=== PATIENT | male | born 1980 | race Caucasian/White ===

== ENCOUNTER 2016-09-27 07:15 | Inpatient (IN) | payer MEDICARE ==
[~2016-09-27] VITALS: Ht 165.1 cm; Wt 64.1 kg
[~2016-09-27 07:15] MED LIST: DAPS25TA2 PO; IBP600T1 PO; LEVO500T78 PO; [UNRECOGNIZED DRUG - CODE] PO
[2016-09-27 10:20] VITALS: BP 117/63
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
[2016-09-27] MEDS ORDERED: oxyCODONE/APAP 10/325MG (PERCOCET 10) TABLET PO PRN (11:00)
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
--- NOTE | 2016-09-27 12:11 | Physical Therapy Evaluation ---
PT Evaluation-General Medical Diagnosis Admission Date Sep 27, 2016 at 10:20 Medical Diagnosis: Left foot pain, S/P left ankle fusion, history abscess Onset Date: Sep 26, 2016 Therapy Diagnosis Therapy Diagnosis: general debility Height/Weight Height (Feet): 5 Height (Inches): 8 Weight (Pounds): 130 Precautions Precautions/Isolations: Fall Prevention, Standard Precautions Weight Bear Status Weight Bearing Restriction: Non Weight Bearing Location Restriction: L LE Referral Physician: Rahcid Reason for Referral: Evaluation/Treatment Medical History Pertinent Medical History: TBI Additional Medical History TBI 24 yrs. ago spastic tone bilateral extremities Current History s/p left ankle fusion Reviewed History: Yes Social History Home: Single Level Current Living Status: Other Family Entry Into Home: Ramp PT Steps Inside Home: 0 Prior/Core FIM Prior Level of Function Functional [place] Measure 0=Not Assessed/NA 4=Minimal Assistance 1=Total Assistance 5=Supervision or Setup 2=Maximal Assistance 6=Modified [place] 3=Moderate Assistance 7=Complete [place] Bed Mobility: 7 Transfers (B,C,W/C) (FIM): 7 Gait: 7 has power scooter and manual w/c PT Evaluation-Current Subjective Patient agrees to PT. Pain Numeric Pain Scale: 5-Moderate Pain Location: Left Location Body Site: Ankle Pain Description: Acute Objective Patient Orientation: Person, Time, Situation Problem Solving: Fair ROM/Strength ROM Lower Extremities right LE WFL (with noted spasticity) left LE NT Strenght Lower Extremities right knee flexion extension 5/5; hip flexion 5/5; ankle 5/5 (tone) left LE NT Integumentary/Posture Integumentary refer to nursing notes Bowel Incontinence: No Bladder Incontinence: No Posture WNL Neuromuscular (Tone, Coordination, Reflexes) bilateral extremities spastic tone/decreased coordination Sensory Vision: Functional Hearing: Functional Hand Dominance: Right Sensation Right Lower Extremit: Intact Sensation Left Lower Extremity: Intact Transfers Functional [place] Measure 0=Not Assessed/NA 4=Minimal Assistance 1=Total Assistance 5=Supervision or Setup 2=Maximal Assistance 6=Modified [place] 3=Moderate Assistance 7=Complete IndependenceIRFPAI Quality Coding Scale 6 Independent with activity with or without an assistive device 5 Patient requires set up or clean up by helper. Patient completes activity by themselves 4 Supervision or touching assist (CGA). [place] provide cues , steadying assist 3 The helper provides less than half the effort to complete the activity 2 The helper provides more than half the effort to complete the activity 1 Dependent. The helper does all the effort to complete an activity 7 Patient refused to complete or attempt activity 9 The patient did not perform the activity before the current illness or injury 88 Not attempted due to Medical conditions or safety concerns Transfers (B, C, W/C) (FIM): 3 Scootin Rollin Roll Left to Right (QC): 5 Supine to/from Sit: 6 Sit to/from Stand: 3 bed t/f WC(FIM only if WC use): 3 Sit to Lying (QC): 5 Lying to Sitting/Side of Bed(Q: 5 Sit to Stand (QC): 2 Chair/Ftt-vg-Aytmw Xfer(QC): 2 Car Transfer (QC): 88 Gait Does the Patient Walk?: No and Walking Goal NOT indicated Wheelchair Training Does the Pt Use a Wheelchair?: Yes Wheelchair (FIM): 1 Wheelchair Distance (FIM): 1=up to 49 ft Distance: 10' Wheelchair Level of Assist: 2 Type of Wheelchair: Manual Stairs 9 Balance Sitting Static: Normal Sitting Dynamic: Normal Standing Static: Poor Standing Dynamic: Poor Picking up an Object (QC): 88 Assessment/Needs 36 y.o. male, s/p left ankle fusion, will benefit from skilled PT to address functional mobility with transfer training to ensure safe return to home with family. Patient has a power chair he will utilize at home upon dismissal. Rehab Potential: Good PT Short Term Goals Short Term Goals Time Frame: October 10, 2016 Transfers (B,C,W/C) (FIM): 5 Wheelchair (FIM): 4 Wheelchair distance (FIM): 3=150 ft Wheelchair Distance: 200' Wheelchair Level of Assist: 4 PT Electrical Linesworker Goals Senior Living Goals PT Electrical Linesworker Goals Time Frame: October 24, 2016 Transfers (B,C,W/C) (FIM): 6 Sit to Lying (QC): 6 Lying-Sitting on Side/Bed(QC): 6 Sit to Stand (QC): 6 Rollin Roll Left to Right (QC): 6 Chair/Khd-nt-Mdmva Xfer(QC): 6 Car Transfer (QC): 6 Does the Patient Walk: No and Walking Goal NOT indicated Does the Pt use WC or Scooter?: Yes Wheelchair (FIM): 6 Wheelchair distance (FIM): 3=150 ft Distance: 250' Wheelchair Level of Assist: 6 Wheel 50 feet with 2 turns (QC: 5 Picking up an Object (QC): 3 PT Plan Problem List Problem List: Activity Tolerance, Safety, Transfer Treatment/Plan Treatment Plan: Continue Plan of Care Treatment Plan: Education, Functional Activity Stephanie, Functional Strength, Group Therapy, Safety, Therapeutic Exercise, Transfers Treatment Duration: October 24, 2016 # of days/week 6 Minutes/Day (M-F): 60-90 Minutes/Day (Sat/[place]): PRN Pt/Family Agrees w/Plan: Yes Safety Risks/Education Patient Education: Safety Issues Teaching Recipient: Patient, Family Teaching Methods: Discussion Response to Teaching: Verbalize Understanding Discharge Recommendations Therapy D/C Recommendations: Home w/ Family Support Time/GCodes Time In: 1021 Time Out: 1051 Total Billed Treatment Time: 30 Total Billed Treatment 1 visit EVModC 30 min DOMINGA FONTENOT PT Sep 27, 2016 12:11
[2016-09-27] MEDS ORDERED: SENNA W/DOCUSATE (SENOKOT S) TABLET PO NR (12:15)
[2016-09-27] MEDS ORDERED: ONDANSETRON 4 MG (ZOFRAN) ORAL DISSOLVE TAB PO PRN (12:30)
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
[2016-09-27] MEDS: IBUPROFEN 600 MG (MOTRIN) TAB PO PRN ×2 (12:39→18:42)
[2016-09-27] MEDS: NICOTINE 14 MG (NICODERM) PATCH TD SCH (12:40)
[2016-09-27] MEDS: TRIM/SULFAMETH 160/800 (SEPTRA DS) TAB PO SCH (18:05)
[2016-09-27] MEDS: ENOXAPARIN 40 MG/0.4 ML (LOVENOX) SYR SC SCH (21:04)
[2016-09-27] MEDS: SENNA W/DOCUSATE (SENOKOT S) TABLET PO SCH (21:05)
[2016-09-27] MEDS: FAMOTIDINE 20 MG (PEPCID) TABLET PO SCH (21:06)
[2016-09-28 05:37] LABS: BASOPHILS % (AUTO) 1 % (0-10); EOSINOPHILS # (AUTO) 0.1 10^3/uL (0.0-0.3); EOSINOPHILS % (AUTO) 1 % (0-10); LYMPHOCYTES # (AUTO) 1.5 X 10^3 (1.0-4.0); LYMPHOCYTES % (AUTO) 17 % (12-44); MEAN CORPUSCULAR HEMOGLOBIN 32 PG (25-34); MEAN CORPUSCULAR HGB CONC 34 G/DL (32-36); MEAN CORPUSCULAR VOLUME 95 FL (80-99); MEAN PLATELET VOLUME 9.9 FL (7.4-10.4); MONOCYTES # (AUTO) 1.1 X 10^3 (0.0-1.0); MONOCYTES % (AUTO) 13 % (0-12); NEUTROPHILS % (AUTO) 68 % (42-75); PLATELET COUNT 194 10^3/uL (130-400); RED BLOOD COUNT 3.27 10^6/uL (4.35-5.85); RED CELL DISTRIBUTION WIDTH 13.1 % (10.0-14.5); WHITE BLOOD COUNT 8.7 10^3/uL (4.3-11.0)
[2016-09-28] MEDS: TRIM/SULFAMETH 160/800 (SEPTRA DS) TAB PO SCH ×2 (06:18→16:10)
[2016-09-28 06:25] LABS: ALANINE AMINOTRANSFERASE 11 U/L (0-55); ANION GAP 8 MMOL/L (5-14); ASPARTATE AMINO TRANSFERASE 14 U/L (5-34); BILIRUBIN,TOTAL 0.5 MG/DL (0.1-1.0); BLOOD UREA NITROGEN 12 MG/DL (7-18); BUN/CREATININE RATIO 14; CALCIUM 8.2 MG/DL (8.5-10.1); CARBON DIOXIDE 25 MMOL/L (21-32); CHLORIDE 104 MMOL/L (98-107); CREATININE SERUM 0.88 MG/DL (0.60-1.30); GFR ESTIMATED > 60; GLUCOSE 114 MG/DL (70-105); SODIUM 137 MMOL/L (135-145); TOTAL PROTEIN 5.5 G/DL (6.4-8.2)
[2016-09-28 07:16] VITALS: BP 108/60
[2016-09-28] MEDS: FAMOTIDINE 20 MG (PEPCID) TABLET PO SCH ×2 (09:44→21:16)
[2016-09-28] MEDS: SENNA W/DOCUSATE (SENOKOT S) TABLET PO SCH ×2 (09:45→21:16)
[2016-09-28] MEDS: NICOTINE 14 MG (NICODERM) PATCH TD SCH (09:45)
[2016-09-28] MEDS: NICOTINE PATCH REMOVAL TP SCH (09:45)
[2016-09-28] MEDS: IBUPROFEN 600 MG (MOTRIN) TAB PO PRN (17:12)
[2016-09-28 17:50] VITALS: BP 105/64
[2016-09-28] MEDS: ENOXAPARIN 40 MG/0.4 ML (LOVENOX) SYR SC SCH (21:16)
[2016-09-29 06:00] VITALS: BP 107/61
[2016-09-29] MEDS: TRIM/SULFAMETH 160/800 (SEPTRA DS) TAB PO SCH ×2 (06:41→17:37)
[2016-09-29] MEDS: SENNA W/DOCUSATE (SENOKOT S) TABLET PO SCH ×2 (08:40→21:11)
[2016-09-29] MEDS: FAMOTIDINE 20 MG (PEPCID) TABLET PO SCH ×2 (08:41→21:08)
[2016-09-29] MEDS: NICOTINE PATCH REMOVAL TP SCH (08:41)
[2016-09-29] MEDS: NICOTINE 14 MG (NICODERM) PATCH TD SCH (08:41)
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
--- NOTE | 2016-09-29 10:23 | Physical Therapy Daily Note ---
PT Daily Note-Current Subjective Patient in bed pre tx, agrees to PT, has pain of 4/10 in left leg. Patient needs to get dressed and a wheel chair cushion needs to be obtained. Appearance Patient BTB post tx with nurse call, phone, tray, all needs met. Polar care on. Mental Status Patient Orientation: Person, Place, Situation Transfers Functional [place] Measure 0=Not Assessed/NA 4=Minimal Assistance 1=Total Assistance 5=Supervision or Setup 2=Maximal Assistance 6=Modified [place] 3=Moderate Assistance 7=Complete IndependenceIRFPAI Quality Coding Scale 6 Independent with activity with or without an assistive device 5 Patient requires set up or clean up by helper. Patient completes activity by themselves 4 Supervision or touching assist (CGA). [place] provide cues , steadying assist 3 The helper provides less than half the effort to complete the activity 2 The helper provides more than half the effort to complete the activity 1 Dependent. The helper does all the effort to complete an activity 7 Patient refused to complete or attempt activity 9 The patient did not perform the activity before the current illness or injury 88 Not attempted due to Medical conditions or safety concerns Transfers (B, C, W/C) (FIM): 6 Scootin Rollin Supine to/from Sit: 6 Sit to/from Stand: 6 Bed to/from Chair: 6 Exercises Patient only used right leg on NuStep. Also performed LAQ alternating for 5 min , standing hip abd/flex/ext x 20 on left. NuStep Minutes: 15 NuStep Workload: 6 Treatments bed mobility and transfers, functional strengthening, wheelchair management, dressing Assessment Current Status: Fair Progress improved bed mobility and transfers. PT Short Term Goals Short Term Goals Time Frame: October 10, 2016 Transfers (B,C,W/C) (FIM): 5 Wheelchair (FIM): 4 Wheelchair distance (FIM): 3=150 ft Wheelchair Distance: 200' Wheelchair Level of Assist: 4 PT Halfway Goals Pressing Department Supervisor Goals PT Halfway Goals Time Frame: October 24, 2016 Transfers (B,C,W/C) (FIM): 6 Sit to Lying (QC): 6 Lying-Sitting on Side/Bed(QC): 6 Sit to Stand (QC): 6 Rollin Roll Left to Right (QC): 6 Chair/Yrn-jj-Wutdn Xfer(QC): 6 Car Transfer (QC): 6 Does the Patient Walk: No and Walking Goal NOT indicated Does the Pt use WC or Scooter?: Yes Wheelchair (FIM): 6 Wheelchair distance (FIM): 3=150 ft Distance: 250' Wheelchair Level of Assist: 6 Wheel 50 feet with 2 turns (QC: 5 Picking up an Object (QC): 3 PT Plan Problem List Problem List: Activity Tolerance, Functional Strength, Safety, Balance, Gait, Transfer, ROM Treatment/Plan Treatment Plan: Continue Plan of Care Treatment Plan: Education, Functional Activity Stephanie, Functional Strength, Group Therapy, Safety, Therapeutic Exercise, Transfers Treatment Duration: October 24, 2016 Minutes/Day (M-F): 60-90 Minutes/Day (Sat/[place]): PRN Safety Risks/Education Patient Education: Transfer Techniques, Correct Positioning, W/C Management, Safety Issues Teaching Recipient: Patient Teaching Methods: Demonstration, Discussion Response to Teaching: Reinforcement Needed Time/GCodes Time In: 930 Time Out: 1015 Total Billed Treatment Time: 45 Total Billed Treatment 1 visit FA 15 min WCH 10 min EX 20 min JACINTO SINHA PT Sep 29, 2016 10:23
--- NOTE | 2016-09-29 14:50 | Therapy Group Daily Note ---
Therapy Daily Group Note Patient Education Topic Home Safety Exercises LE Seated Exercise, Sit to/from Stand, UE Exercise Other/Notes Pt. attended group PT OT ST session this date. Pt. came by w/c. Pt. introduced self and was social and very pleasant and enjoyed socializing. Education and game this date focused on Home safety aspects. Pts did sit to stand and bag toss onto a safety topic written on scattered pieces of paper on floor. Pts expressed his views of safety with regards to chairs at home with wheels on it.. Voice exercises were also done per PLANNING MANAGEMENT IT SPECIALIST. Pt. to room after with mod assist TRF to bed.. Start Time: 13:00 Stop Time: 14:15 Total Billed Treatment Time: 75 Total Billed Treatment 1,GRP GARIMA MICHEL RESPONDER Sep 29, 2016 14:50
--- NOTE | 2016-09-29 15:05 | Occupational Ther Daily Note ---
OT Current Status-Daily Note Subjective Pt alert, lying in bed. Pt agree to therapy. No c/o pain at this time. Mental Status/Objective Patient Orientation: Person, Place, Time, Situation Functional [place] Measure 0=Not Assessed/NA 4=Minimal Assistance 1=Total Assistance 5=Supervision or Setup 2=Maximal Assistance 6=Modified [place] 3=Moderate Assistance 7=Complete [place] ADL-Treatment Functional [place] Measure 0=Not Assessed/NA 4=Minimal Assistance 1=Total Assistance 5=Supervision or Setup 2=Maximal Assistance 6=Modified [place] 3=Moderate Assistance 7=Complete IndependenceIRFPAI Quality Coding Scale 6 Independent with activity with or without an assistive device 5 Patient requires set up or clean up by helper. Patient completes activity by themselves 4 Supervision or touching assist (CGA). [place] provide cues , steadying assist 3 The helper provides less than half the effort to complete the activity 2 The helper provides more than half the effort to complete the activity 1 Dependent. The helper does all the effort to complete an activity 7 Patient refused to complete or attempt activity 9 The patient did not perform the activity before the current illness or injury 88 Not attempted due to Medical conditions or safety concerns Bathing (FIM): 4 (After set up, pt sat EOB and completed sponge bath. Pt was able to bathe self sitting on EOB then min A when standing to cleanse buttocks.) Shower/Bathe Self (QC): 4 Upper Body (FIM): 5 (After set up, pt is able to dress upper body clothing.) Upper Body Dressing (QC): 5 Lower Body Dressing (FIM): 4 (Min A to stand and hike pants over hips. Pt is able to don/doff over feet. Pt is able to don/doff sock over R foot while sitting in bed.) Lower Body Dressing (QC): 3 On/Off Footwear (QC): 5 Toileting (FIM): 4 (Using BSC, pt is able to manipulate clothing and cleanse self with min A in standing while pt cleansed self.) Toileting Hygiene (QC): 3 Transfers (B, C, W/C) (FIM): 4 (Min A with stand pivot transfer.) Toilet/Commode Transfer (FIM): 4 (Min A with stand pivot transfer) Toilet Transfer (QC): 3 Hand massage to decrease stiffness and pain in dominant hand for daily functional tasks. Pt is able to use L hand as helper hand. After therapy, pt lying in bed with call light/phone in reach. All needs met in room. OT Short Term Goals Short Term Goals Time Frame: Oct 04, 2016 Eating(FIM): 5 Grooming(FIM): 5 Bathing(FIM): 5 Bathing Location: L Arm, R Arm, L Upper Leg, R Upper Leg, L Lower Leg ( including foot), R Lower Leg (including foot), Chest, Abdomen, Buttocks, Perineal Area Upper Body Dressing(FIM): 5 Lower Body Dressing(FIM): 3 Toileting(FIM): 3 Transfers (B,C,W/C) (FIM): 5 Toilet/Commode Transfer(FIM): 3 Tub Transfer(FIM): 0 Shower Transfer(FIM): 3 1=Demonstrate adherence to instructed precautions during ADL tasks. 2=Patient will verbalize/demonstrate understanding of assistive devices/ modifications for ADL. 3=Patient will improve strength/tolerance for activity to enable patient to perform ADL's. OT Shelter Goals Service Center Supervisor Goals Time Frame: October 11, 2016 Eating (FIM): 7 Eating (QC): 6 Groomin Oral Hygiene (QC): 6 Bathing(FIM): 6 Bathing Location: L Arm, R Arm, L Upper Leg, R Upper Leg, L Lower Leg ( including foot), R Lower Leg (including foot), Chest, Abdomen, Buttocks, Perineal Area Shower/Bathe Self (QC): 6 Upper Body Dressing(FIM): 6 Upper Body Dressing (QC): 6 Lower Body Dressing(FIM): 6 Lower Body Dressing (QC): 6 On/Off Footwear (QC): 6 Toileting(FIM): 6 Toileting Hygiene (QC): 6 Transfers (B,C,W/C) (FIM): 6 Toilet/Commode Transfer(FIM): 6 Toilet/Commode Transfer (QC): 6 Shower Transfer(FIM): 6 1=Demonstrate adherence to instructed precautions during ADL tasks. 2=Patient will verbalize/demonstrate understanding of assistive devices/ modifications for ADL. 3=Patient will improve strength/tolerance for activity to enable patient to perform ADL's. OT Education/Plan Discharge Recommendations Plan/Recommendations: Continue POC Treatment Plan/Plan of Care Patient would benefit from OT for education, treatment and training to promote independence in ADL's, mobility, safety and/or upper extremity function for ADL' s. Plan of Care: ADL Retraining, Caregiver Training, Functional Mobility, Group Exercise/Act as Ind, UE Funct Exercise/Act, W/C Management Training Treatment Duration: October 25, 2016 Visits Per Week: 10-11 Minutes/Day (M-F): 75-90 Minutes/Day (Sat/[place]): PRN Agreement: Yes Rehab Potential: Good Time/GCodes Start Time: 11:00 Stop Time: 12:00 Total Time Billed (hr/min): 60 Billed Treatment Time 1 visit-FA 2 (30 min) ADL 2 (30 min) ANURAG BROWN Sep 29, 2016 15:05
[2016-09-29 18:00] VITALS: BP 99/58
--- NOTE | 2016-09-29 20:20 | PM & R (SOAP) Progress Note ---
Subjective Subjective/Events-last exam Patient was seen in his room earlier this evening Patient Modified Independent for transfers Objective Exam Last Set of Vital Signs Vital Signs Date Time Temp Pulse Resp B/P (MAP) Pulse Ox O2 Delivery O2 Flow Rate FiO2 09/29/16 18:00 98.1 85 16 99/58 94 Room Air Capillary Refill : Less Than 3 SecondsLess Than 3 Seconds I&O Intake and Output 09/29/16 00:00 Intake Total 2260 ml Output Total 2525 ml Balance -265 ml Intake Oral 2260 ml Output Urine Total 2525 ml # Bowel Movements 2 General: Alert, Oriented X3, Cooperative, No Acute Distress HEENT: Atraumatic, PERRLA, EOMI, Mucous Memb Moist/[place] Neck: Supple, No JVD Lungs: Clear to Auscultation Heart: Regular Rate Abdomen: Normal Bowel Sounds, Soft, No Tenderness Extremities: Other (left foot in splint) Neuro: Other (Functional except for left ankle postop) Results Lab Laboratory Tests 09/28/16 05:25: White Blood Count 8.7, Red Blood Count 3.27L, Hemoglobin 10.5L, Hematocrit 31L, Mean Corpuscular Volume 95, Mean Corpuscular Hemoglobin 32, Mean Corpuscular Hemoglobin Concent 34, Red Cell Distribution Width 13.1, Platelet Count 194, Mean Platelet Volume 9.9, Neutrophils (%) (Auto) 68, Lymphocytes (%) (Auto) 17, Monocytes (%) (Auto) 13H, Eosinophils (%) (Auto) 1, Basophils (%) (Auto) 1, Neutrophils # (Auto) 6.0, Lymphocytes # (Auto) 1.5, Monocytes # (Auto) 1.1H, Eosinophils # (Auto) 0.1, Basophils # (Auto) 0.0, Sodium Level 137, Potassium Level 4.0, Chloride Level 104, Carbon Dioxide Level 25, Anion Gap 8, Blood Urea Nitrogen 12, Creatinine 0.88, Estimat Glomerular Filtration Rate > 60, BUN/ Creatinine Ratio 14, Glucose Level 114H, Calcium Level 8.2L, Total Bilirubin 0.5 , Aspartate Amino Transf (AST/SGOT) 14, Alanine Aminotransferase (ALT/SGPT) 11, Alkaline Phosphatase 54, Total Protein 5.5L, Albumin 3.0L Assessment/Plan Assessment s/p pantalar fusion for abscess left foor continues on Antibiotics TBI with HX of disability Tobaccoism-chewing tobacco -smoking cessation Plan Continue PT/OT Team Conference 10/01/16 Discharge soon most likely. to home with family CURT CORDERO MD Sep 29, 2016 20:20
[2016-09-29] MEDS: ENOXAPARIN 40 MG/0.4 ML (LOVENOX) SYR SC SCH (21:09)
[2016-09-30 06:00] VITALS: BP 112/70
[2016-09-30] MEDS: TRIM/SULFAMETH 160/800 (SEPTRA DS) TAB PO SCH ×2 (06:46→16:52)
[2016-09-30] MEDS: FAMOTIDINE 20 MG (PEPCID) TABLET PO SCH ×2 (08:28→20:21)
[2016-09-30] MEDS: NICOTINE 14 MG (NICODERM) PATCH TD SCH (08:28)
[2016-09-30] MEDS: SENNA W/DOCUSATE (SENOKOT S) TABLET PO SCH ×2 (08:28→20:24)
[2016-09-30] MEDS: NICOTINE PATCH REMOVAL TP SCH (08:28)
--- NOTE | 2016-09-30 08:59 | Physical Therapy Daily Note ---
PT Daily Note-Current Subjective Patient in bed pre tx, agrees to PT, needs to get dressed. Patient has pain of 2-3/10, would like to limit dependent position of left leg this morning, he says when it is down for a while it really hurts and throbs. Appearance Patient in wheelchair post tx with nurse changing his bed. Nurse will put him back to bed when she is done. Mental Status Patient Orientation: Person, Place, Situation Transfers Functional [place] Measure 0=Not Assessed/NA 4=Minimal Assistance 1=Total Assistance 5=Supervision or Setup 2=Maximal Assistance 6=Modified [place] 3=Moderate Assistance 7=Complete IndependenceIRFPAI Quality Coding Scale 6 Independent with activity with or without an assistive device 5 Patient requires set up or clean up by helper. Patient completes activity by themselves 4 Supervision or touching assist (CGA). [place] provide cues , steadying assist 3 The helper provides less than half the effort to complete the activity 2 The helper provides more than half the effort to complete the activity 1 Dependent. The helper does all the effort to complete an activity 7 Patient refused to complete or attempt activity 9 The patient did not perform the activity before the current illness or injury 88 Not attempted due to Medical conditions or safety concerns Transfers (B, C, W/C) (FIM): 6 Scootin Rollin Supine to/from Sit: 6 Sit to/from Stand: 6 Bed to/from Chair: 6 Exercises Supine Ex: Quad Set, Glut sets, Heel Slides, Straight leg raise, Hip abd/add Supine Reps: 20 SAQ alternating for 5 min, LAQ alternating for 5 min with 2# ankle weights, left leg not used on NuStep NuStep Minutes: 15 NuStep Workload: 6 Treatments bed mobility and transfers, functional strengthening Assessment Current Status: Fair Progress improving mobility and strength PT Short Term Goals Short Term Goals Time Frame: October 10, 2016 Transfers (B,C,W/C) (FIM): 5 Wheelchair (FIM): 4 Wheelchair distance (FIM): 3=150 ft Wheelchair Distance: 200' Wheelchair Level of Assist: 4 PT Fpc Goals Fpc Goals PT Fpc Goals Time Frame: October 24, 2016 Transfers (B,C,W/C) (FIM): 6 Sit to Lying (QC): 6 Lying-Sitting on Side/Bed(QC): 6 Sit to Stand (QC): 6 Rollin Roll Left to Right (QC): 6 Chair/Tbn-pj-Mllao Xfer(QC): 6 Car Transfer (QC): 6 Does the Patient Walk: No and Walking Goal NOT indicated Does the Pt use WC or Scooter?: Yes Wheelchair (FIM): 6 Wheelchair distance (FIM): 3=150 ft Distance: 250' Wheelchair Level of Assist: 6 Wheel 50 feet with 2 turns (QC: 5 Picking up an Object (QC): 3 PT Plan Problem List Problem List: Activity Tolerance, Functional Strength, Safety, Balance, Gait, Transfer Treatment/Plan Treatment Plan: Continue Plan of Care Treatment Plan: Education, Functional Activity Stephanie, Functional Strength, Group Therapy, Safety, Therapeutic Exercise, Transfers Treatment Duration: October 24, 2016 Minutes/Day (M-F): 60-90 Minutes/Day (Sat/[place]): PRN Safety Risks/Education Patient Education: Transfer Techniques, Reviewed Precautions, Correct Positioning, Safety Issues Teaching Recipient: Patient Teaching Methods: Demonstration, Discussion Response to Teaching: Reinforcement Needed Time/GCodes Time In: 800 Time Out: 900 Total Billed Treatment Time: 60 Total Billed Treatment 1 visit FA 15 min EX 45 min JACINTO SINHA PT Sep 30, 2016 08:59
--- NOTE | 2016-09-30 11:28 | Occupational Ther Daily Note ---
OT Current Status-Daily Note Subjective Pt alert, sitting up in bed. Pt agreed to therapy. No c/o pain at this time. Mental Status/Objective Patient Orientation: Person, Place, Time, Situation Functional [place] Measure 0=Not Assessed/NA 4=Minimal Assistance 1=Total Assistance 5=Supervision or Setup 2=Maximal Assistance 6=Modified [place] 3=Moderate Assistance 7=Complete [place] ADL-Treatment Pt completes oral care at night. Per pt, pt sits at sink and brushes teeth on own. Functional [place] Measure 0=Not Assessed/NA 4=Minimal Assistance 1=Total Assistance 5=Supervision or Setup 2=Maximal Assistance 6=Modified [place] 3=Moderate Assistance 7=Complete IndependenceIRFPAI Quality Coding Scale 6 Independent with activity with or without an assistive device 5 Patient requires set up or clean up by helper. Patient completes activity by themselves 4 Supervision or touching assist (CGA). [place] provide cues , steadying assist 3 The helper provides less than half the effort to complete the activity 2 The helper provides more than half the effort to complete the activity 1 Dependent. The helper does all the effort to complete an activity 7 Patient refused to complete or attempt activity 9 The patient did not perform the activity before the current illness or injury 88 Not attempted due to Medical conditions or safety concerns Grooming (FIM): 6 Oral Hygiene (QC): 6 Bathing (FIM): 5 (Using grabbar, shower bench and hand held shower pt is able to complete with supervision for safety.) Bathing Location: L Arm, R Arm, L Upper Leg, R Upper Leg, L Lower Leg ( including foot), R Lower Leg (including foot), Chest, Abdomen, Buttocks, Perineal Area Shower/Bathe Self (QC): 4 Upper Body (FIM): 5 (After set up, pt is able to complete by self.) Upper Body Dressing (QC): 5 Lower Body Dressing (FIM): 5 (After set up, pt is able to sit EOB and don/doff clothing by self. Pt is able to stand at EOB keeping wt bearing status and hike pants over hips and button/zip with SBA.) Lower Body Dressing (QC): 4 On/Off Footwear (QC): 5 (Sitting on EOB, pt is able to complete by self after setup.) Toileting (FIM): 5 (Using grabbars, pt is able to manipulate clothing and cleanse self with SBA.) Toileting Hygiene (QC): 4 Transfers (B, C, W/C) (FIM): 4 (Pt demonstrates ability to complete stand pivot transfer with CGA. Pt requires cues for safety (locking brakes and positioning w/c).) Toilet/Commode Transfer (FIM): 4 (CGA using grabbars for safety.) Toilet Transfer (QC): 4 Shower Transfer(FIM): 4 (CGA using shower bench, grabbars and w/c. Cues for locking brakes and positioning w/c correctly.) Other Treatment Pt was transported to therapy gym via w/c. Pt completed hand strengthening and UE strengthening with hand wts (4#) and medium resistance theraband, 3 sets 10 reps each. Pt tolerated well. After therapy, pt lying in bed with call light/ phone in reach. Cold pack applied to toes of L foot. All needs met in room. OT Short Term Goals Short Term Goals Time Frame: Oct 04, 2016 Eating(FIM): 5 Grooming(FIM): 5 Bathing(FIM): 5 Bathing Location: L Arm, R Arm, L Upper Leg, R Upper Leg, L Lower Leg ( including foot), R Lower Leg (including foot), Chest, Abdomen, Buttocks, Perineal Area Upper Body Dressing(FIM): 5 Lower Body Dressing(FIM): 3 Toileting(FIM): 3 Transfers (B,C,W/C) (FIM): 5 Toilet/Commode Transfer(FIM): 3 Tub Transfer(FIM): 0 Shower Transfer(FIM): 3 1=Demonstrate adherence to instructed precautions during ADL tasks. 2=Patient will verbalize/demonstrate understanding of assistive devices/ modifications for ADL. 3=Patient will improve strength/tolerance for activity to enable patient to perform ADL's. OT Computer Numerical Control Machinist Goals Jail Goals Time Frame: October 11, 2016 Eating (FIM): 7 Eating (QC): 6 Groomin Oral Hygiene (QC): 6 Bathing(FIM): 6 Bathing Location: L Arm, R Arm, L Upper Leg, R Upper Leg, L Lower Leg ( including foot), R Lower Leg (including foot), Chest, Abdomen, Buttocks, Perineal Area Shower/Bathe Self (QC): 6 Upper Body Dressing(FIM): 6 Upper Body Dressing (QC): 6 Lower Body Dressing(FIM): 6 Lower Body Dressing (QC): 6 On/Off Footwear (QC): 6 Toileting(FIM): 6 Toileting Hygiene (QC): 6 Transfers (B,C,W/C) (FIM): 6 Toilet/Commode Transfer(FIM): 6 Toilet/Commode Transfer (QC): 6 Shower Transfer(FIM): 6 1=Demonstrate adherence to instructed precautions during ADL tasks. 2=Patient will verbalize/demonstrate understanding of assistive devices/ modifications for ADL. 3=Patient will improve strength/tolerance for activity to enable patient to perform ADL's. OT Education/Plan Discharge Recommendations Plan/Recommendations: Continue POC Treatment Plan/Plan of Care Patient would benefit from OT for education, treatment and training to promote independence in ADL's, mobility, safety and/or upper extremity function for ADL' s. Plan of Care: ADL Retraining, Caregiver Training, Functional Mobility, Group Exercise/Act as Ind, UE Funct Exercise/Act, W/C Management Training Treatment Duration: October 25, 2016 Visits Per Week: 10-11 Minutes/Day (M-F): 75-90 Minutes/Day (Sat/[place]): PRN Agreement: Yes Rehab Potential: Good Time/GCodes Start Time: 10:00 Stop Time: 11:00 Total Time Billed (hr/min): 60 Billed Treatment Time 1 visit-ADL 3 (40 min) EX 1 (20 min) ANURAG BROWN Sep 30, 2016 11:28
--- NOTE | 2016-09-30 13:08 | Occupational Ther Daily Note ---
OT Current Status-Daily Note Subjective Pt alert, lying in bed. Pt agreed to therapy. No c/o pain. Mental Status/Objective Patient Orientation: Person, Place, Time, Situation Functional [place] Measure 0=Not Assessed/NA 4=Minimal Assistance 1=Total Assistance 5=Supervision or Setup 2=Maximal Assistance 6=Modified [place] 3=Moderate Assistance 7=Complete [place] ADL-Treatment Functional [place] Measure 0=Not Assessed/NA 4=Minimal Assistance 1=Total Assistance 5=Supervision or Setup 2=Maximal Assistance 6=Modified [place] 3=Moderate Assistance 7=Complete IndependenceIRFPAI Quality Coding Scale 6 Independent with activity with or without an assistive device 5 Patient requires set up or clean up by helper. Patient completes activity by themselves 4 Supervision or touching assist (CGA). [place] provide cues , steadying assist 3 The helper provides less than half the effort to complete the activity 2 The helper provides more than half the effort to complete the activity 1 Dependent. The helper does all the effort to complete an activity 7 Patient refused to complete or attempt activity 9 The patient did not perform the activity before the current illness or injury 88 Not attempted due to Medical conditions or safety concerns Other Treatment Pt transferred from bed to w/c with SBA. Then was transported to therapy gym. Completed arm bike duration 15 min at 25 sheehan resistance to increase strength and activity tolerance for daily functional. Then pt completed fine motor dexterity with L hand. Limited ROM in L hand, uses thumb to touch each finger tip. Pt is able to transfer with supervision though requires cues to lock brakes and remember safety. After therapy, pt lying in bed with call light/ phone. All needs met in room. OT Short Term Goals Short Term Goals Time Frame: Oct 04, 2016 Eating(FIM): 5 Grooming(FIM): 5 Bathing(FIM): 5 Bathing Location: L Arm, R Arm, L Upper Leg, R Upper Leg, L Lower Leg ( including foot), R Lower Leg (including foot), Chest, Abdomen, Buttocks, Perineal Area Upper Body Dressing(FIM): 5 Lower Body Dressing(FIM): 3 Toileting(FIM): 3 Transfers (B,C,W/C) (FIM): 5 Toilet/Commode Transfer(FIM): 3 Tub Transfer(FIM): 0 Shower Transfer(FIM): 3 1=Demonstrate adherence to instructed precautions during ADL tasks. 2=Patient will verbalize/demonstrate understanding of assistive devices/ modifications for ADL. 3=Patient will improve strength/tolerance for activity to enable patient to perform ADL's. OT Young Adult Librarian Goals Young Adult Librarian Goals Time Frame: October 11, 2016 Eating (FIM): 7 Eating (QC): 6 Groomin Oral Hygiene (QC): 6 Bathing(FIM): 6 Bathing Location: L Arm, R Arm, L Upper Leg, R Upper Leg, L Lower Leg ( including foot), R Lower Leg (including foot), Chest, Abdomen, Buttocks, Perineal Area Shower/Bathe Self (QC): 6 Upper Body Dressing(FIM): 6 Upper Body Dressing (QC): 6 Lower Body Dressing(FIM): 6 Lower Body Dressing (QC): 6 On/Off Footwear (QC): 6 Toileting(FIM): 6 Toileting Hygiene (QC): 6 Transfers (B,C,W/C) (FIM): 6 Toilet/Commode Transfer(FIM): 6 Toilet/Commode Transfer (QC): 6 Shower Transfer(FIM): 6 1=Demonstrate adherence to instructed precautions during ADL tasks. 2=Patient will verbalize/demonstrate understanding of assistive devices/ modifications for ADL. 3=Patient will improve strength/tolerance for activity to enable patient to perform ADL's. OT Education/Plan Discharge Recommendations Plan/Recommendations: Continue POC Treatment Plan/Plan of Care Patient would benefit from OT for education, treatment and training to promote independence in ADL's, mobility, safety and/or upper extremity function for ADL' s. Plan of Care: ADL Retraining, Caregiver Training, Functional Mobility, Group Exercise/Act as Ind, UE Funct Exercise/Act, W/C Management Training Treatment Duration: October 25, 2016 Visits Per Week: 10-11 Minutes/Day (M-F): 75-90 Minutes/Day (Sat/[place]): PRN Agreement: Yes Rehab Potential: Good Time/GCodes Start Time: 13:00 Stop Time: 13:30 Total Time Billed (hr/min): 30 Billed Treatment Time 1 visit-EX 2 (30 min) ANURAG BROWN Sep 30, 2016 13:08
--- NOTE | 2016-09-30 14:55 | Physical Therapy Daily Note ---
PT Daily Note-Current Subjective Patient is very agreeable to participate with PT. No c/o at this time. Pain Numeric Pain Scale: 5-Moderate Pain Location: Left Location Body Site: Foot Pain Description: Pressure Mental Status Patient Orientation: Normal For Age Transfers Functional [place] Measure 0=Not Assessed/NA 4=Minimal Assistance 1=Total Assistance 5=Supervision or Setup 2=Maximal Assistance 6=Modified [place] 3=Moderate Assistance 7=Complete IndependenceIRFPAI Quality Coding Scale 6 Independent with activity with or without an assistive device 5 Patient requires set up or clean up by helper. Patient completes activity by themselves 4 Supervision or touching assist (CGA). [place] provide cues , steadying assist 3 The helper provides less than half the effort to complete the activity 2 The helper provides more than half the effort to complete the activity 1 Dependent. The helper does all the effort to complete an activity 7 Patient refused to complete or attempt activity 9 The patient did not perform the activity before the current illness or injury 88 Not attempted due to Medical conditions or safety concerns Transfers (B, C, W/C) (FIM): 6 Scootin Rollin Roll Left to Right (QC): 5 Supine to/from Sit: 7 Sit to/from Stand: 6 Sit to Lying (QC): 5 Sit to Stand (QC): 5 Chair/Zhz-wa-Oragn Xfer(QC): 5 Bed to/from Chair: 6 sit to stand transfers x 5 with patient performing SPT and sit to stand erect on right LE. Weight Bearing Weight Bearing Restriction: Non Weight Bearing Location Restriction: LT FOOT Gait Training Does the Patient Walk?: No and Walking Goal NOT indicated Wheelchair Training Does the Pt Use a Wheelchair?: Yes Wheelchair (FIM): 2 Wheelchair Distance: 3=181-10 ft Distance: 50' x 2 Wheelchair Level of Assist: 5 Wheel 50 ft with 2 turns (QC): 4 Type of Wheelchair: Manual Exercises Seated Therapy Exercises: Sit to stand, Long arc quads (25 reps) Assessment Patient progressing quickly due to good strength prior. Patient is anxious to return to home soon. PT Short Term Goals Short Term Goals Time Frame: October 10, 2016 Transfers (B,C,W/C) (FIM): 5 Wheelchair (FIM): 4 Wheelchair distance (FIM): 3=150 ft Wheelchair Distance: 200' Wheelchair Level of Assist: 4 PT Product Development Technician Goals Product Development Technician Goals PT Nursing Home Goals Time Frame: October 24, 2016 Transfers (B,C,W/C) (FIM): 6 Sit to Lying (QC): 6 Lying-Sitting on Side/Bed(QC): 6 Sit to Stand (QC): 6 Rollin Roll Left to Right (QC): 6 Chair/Jjx-bd-Swvpo Xfer(QC): 6 Car Transfer (QC): 6 Does the Patient Walk: No and Walking Goal NOT indicated Does the Pt use WC or Scooter?: Yes Wheelchair (FIM): 6 Wheelchair distance (FIM): 3=150 ft Distance: 250' Wheelchair Level of Assist: 6 Wheel 50 feet with 2 turns (QC: 5 Picking up an Object (QC): 3 PT Plan Treatment/Plan Treatment Plan: Continue Plan of Care Treatment Plan: Education, Functional Activity Stephanie, Functional Strength, Group Therapy, Safety, Therapeutic Exercise, Transfers Treatment Duration: October 24, 2016 Minutes/Day (M-F): 60-90 Minutes/Day (Sat/[place]): PRN Time/GCodes Time In: 1430 Time Out: 1500 Total Billed Treatment Time: 30 Total Billed Treatment 1 visit [facility] 20 min FA 10 min DOMINGA FONTENOT PT Sep 30, 2016 14:54
[2016-09-30 18:58] VITALS: BP 112/59
--- NOTE | 2016-09-30 19:28 | PM & R (SOAP) Progress Note ---
Subjective Subjective/Events-last exam Patient was seen in his room earlier today Patient Modified Independent for transfers Objective Exam Last Set of Vital Signs Vital Signs Date Time Temp Pulse Resp B/P (MAP) Pulse Ox O2 Delivery O2 Flow Rate FiO2 09/30/16 06:00 98.7 85 18 112/70 92 Room Air Capillary Refill : Less Than 3 SecondsLess Than 3 Seconds I&O Intake and Output 09/30/16 00:00 Intake Total 2080 ml Output Total 2000 ml Balance 80 ml Intake Oral 2080 ml Output Urine Total 2000 ml # Bowel Movements 2 General: Alert, Oriented X3, Cooperative, No Acute Distress HEENT: Atraumatic, PERRLA, EOMI, Mucous Memb Moist/[place] Neck: Supple, No JVD Lungs: Clear to Auscultation Heart: Regular Rate Abdomen: Normal Bowel Sounds, Soft, No Tenderness Extremities: Other (left foot in splint) Neuro: Other (Functional except for left ankle postop) Results Lab Laboratory Tests 09/28/16 05:25: White Blood Count 8.7, Red Blood Count 3.27L, Hemoglobin 10.5L, Hematocrit 31L, Mean Corpuscular Volume 95, Mean Corpuscular Hemoglobin 32, Mean Corpuscular Hemoglobin Concent 34, Red Cell Distribution Width 13.1, Platelet Count 194, Mean Platelet Volume 9.9, Neutrophils (%) (Auto) 68, Lymphocytes (%) (Auto) 17, Monocytes (%) (Auto) 13H, Eosinophils (%) (Auto) 1, Basophils (%) (Auto) 1, Neutrophils # (Auto) 6.0, Lymphocytes # (Auto) 1.5, Monocytes # (Auto) 1.1H, Eosinophils # (Auto) 0.1, Basophils # (Auto) 0.0, Sodium Level 137, Potassium Level 4.0, Chloride Level 104, Carbon Dioxide Level 25, Anion Gap 8, Blood Urea Nitrogen 12, Creatinine 0.88, Estimat Glomerular Filtration Rate > 60, BUN/ Creatinine Ratio 14, Glucose Level 114H, Calcium Level 8.2L, Total Bilirubin 0.5 , Aspartate Amino Transf (AST/SGOT) 14, Alanine Aminotransferase (ALT/SGPT) 11, Alkaline Phosphatase 54, Total Protein 5.5L, Albumin 3.0L Assessment/Plan Assessment s/p pantalar fusion for abscess left foor continues on Antibiotics TBI with HX of disability Tobaccoism-chewing tobacco -smoking cessation Plan Continue PT/OT Team Conference tomorrow 10/01/16 Discharge soon most likely. to home with family CURT CORDERO MD Sep 30, 2016 19:28
--- NOTE | 2016-09-30 19:32 | Individualized Plan of Care ---
Individualized Plan of Care Rehab Nursing IPOC Order Admission Date Sep 27, 2016 at 10:20 Current Orders Orders Patient Visit (09/30/16 ) Wheelchair Mgmt/Propulsn 15min (09/30/16 ) Functional Activities, Ea 15 (09/30/16 ) Patient Visit (09/30/16 ) Exercise Therap, Ea 15 Min (09/30/16 ) Functional Activities, Ea 15 (09/30/16 ) Rehab Nursing Orders: Diseage Management, Edu in Press Rel Techn, Hydration Management, Nutrition Management Toilet every (bladder): (hrs): 2 hours while awake PRN PT IPOC Problem List: Activity Tolerance, Functional Strength, Safety, Balance, Gait, Transfer Treatment Plan: Continue Plan of Care Education, Functional Activity Stephanie, Functional Strength, Group Therapy, Safety , Therapeutic Exercise, Transfers Treatment Duration: October 24, 2016 Visits Per Week: 10-11 Minutes/Day (M-F): 60-90 Minutes/Day (Sat/[place]): PRN OT IPOC Problems: Decreased Activ Tolerance, Decreased Safety Aware, Dependent Transfers, Impaired Self-Care Skills, Restricted Funct UE ROM Plan of Care: ADL Retraining, Caregiver Training, Functional Mobility, Group Exercise/Act as Ind, UE Funct Exercise/Act, W/C Management Training Treatment Duration: October 25, 2016 Visits Per Week: 10-11 Minutes/Day (M-F): 75-90 Minutes/Day (Sat/[place]): PRN ST IPOC Speech Therapy Treatment Plan: Discontinue ST Physician IPOC Medical Issues being managed closely and that require the 24 hour availability of a physician: Post-op pain management Postop smoking cessation Medical Issues: Bowel/Bladder Function, DVT Prophylaxis, Falls Precautions, Fluid/Electrolyte/Nutrition Balance, Infection Protection, Pain Management, Weight Bearing Precautions, Wound Care, Other (List) (as per above) Brief Synthesis of Preadmission Screen, Post-Admission Evaluation, and Therapy Evaluations: 36 yo disabled male from TBI years ago who had foot surgery with his Cousin DR Kala HUI Now NWB LLE and requing some assistance prior to discharge home with family Smoking cessation provide for HX of chewing tobacco Medical Prognosis: good Anticipated Length of Stay: 7-10-days Rehab Goals Modified Independent for adls and mobility skills Anticipated discharge destinat: Home with [facility] and family CURT CORDERO MD Sep 30, 2016 19:32
[2016-09-30] MEDS: ENOXAPARIN 40 MG/0.4 ML (LOVENOX) SYR SC SCH (20:21)
[2016-10-01 05:00] VITALS: BP 91/54
[2016-10-01] MEDS: TRIM/SULFAMETH 160/800 (SEPTRA DS) TAB PO SCH (06:41)
[2016-10-01] MEDS: NICOTINE 14 MG (NICODERM) PATCH TD SCH ×2 (08:12→08:29)
[2016-10-01] MEDS: FAMOTIDINE 20 MG (PEPCID) TABLET PO SCH (08:12)
[2016-10-01] MEDS: NICOTINE PATCH REMOVAL TP SCH (08:12)
--- NOTE | 2016-10-01 08:19 | Physical Therapy Daily Note ---
PT Daily Note-Current Subjective Patient in wheelchair pre tx, he state that he will be leaving today at around 2 :00 PM. He states he is performing transfers on his own and propels a manual wheelchair without assist. He is not ambulating or doing stairs due to his weight bearing status and weak right arm, but he does not have to do that at home. He has a power chair or scooter at home and apparently good family support. I checked with the doctor and he confirmed that patient should be leaving today, but he has to check with delinquency prevention social worker before he writes the discharge orders. Appearance Patient in bed post tx with nurse call, phone, tray, all needs met. Mental Status Patient Orientation: Person, Place, Situation Transfers Functional [place] Measure 0=Not Assessed/NA 4=Minimal Assistance 1=Total Assistance 5=Supervision or Setup 2=Maximal Assistance 6=Modified [place] 3=Moderate Assistance 7=Complete IndependenceIRFPAI Quality Coding Scale 6 Independent with activity with or without an assistive device 5 Patient requires set up or clean up by helper. Patient completes activity by themselves 4 Supervision or touching assist (CGA). [place] provide cues , steadying assist 3 The helper provides less than half the effort to complete the activity 2 The helper provides more than half the effort to complete the activity 1 Dependent. The helper does all the effort to complete an activity 7 Patient refused to complete or attempt activity 9 The patient did not perform the activity before the current illness or injury 88 Not attempted due to Medical conditions or safety concerns Transfers (B, C, W/C) (FIM): 6 Scootin Rollin Roll Left to Right (QC): 6 Supine to/from Sit: 6 Sit to/from Stand: 6 Sit to Lying (QC): 6 Sit to Stand (QC): 6 Chair/Xbw-np-Duclm Xfer(QC): 6 Bed to/from Chair: 6 Car Transfer (QC): 88 Gait Training Does the Patient Walk?: No and Walking Goal NOT indicated Wheelchair Training Does the Pt Use a Wheelchair?: Yes Wheelchair (FIM): 6 Distance: 150'x2 Wheel 50 ft with 2 turns (QC): 6 Wheel 150 ft (QC): 6 Type of Wheelchair: Manual Stair Training Stairs (FIM): 0 1 Step (curb) (QC): 88 4 Steps (QC): 88 12 Steps (QC): 88 Balance Picking up an Object (QC): 88 Treatments wheelchair mobility, transfers, bed mobility Assessment Current Status: Fair Progress Patient is mod I from a wheelchair level. He has a scooter at home and good family support. If he is being discharged today he should be able to perform bed mobility, transfers, wheelchair mobility well. PT Short Term Goals Short Term Goals Time Frame: October 10, 2016 Transfers (B,C,W/C) (FIM): 5 Wheelchair (FIM): 4 Wheelchair distance (FIM): 3=150 ft Wheelchair Distance: 50' x 2 Wheelchair Level of Assist: 4 PT Care Home Goals Care Home Goals PT Care Home Goals Time Frame: October 24, 2016 Transfers (B,C,W/C) (FIM): 6 Sit to Lying (QC): 6 Lying-Sitting on Side/Bed(QC): 6 Sit to Stand (QC): 6 Rollin Roll Left to Right (QC): 6 Chair/Hdp-hn-Kanjz Xfer(QC): 6 Car Transfer (QC): 6 Does the Patient Walk: No and Walking Goal NOT indicated Does the Pt use WC or Scooter?: Yes Wheelchair (FIM): 6 Wheelchair distance (FIM): 3=150 ft Distance: 250' Wheelchair Level of Assist: 6 Wheel 50 feet with 2 turns (QC: 5 Picking up an Object (QC): 3 PT Plan Problem List Problem List: Activity Tolerance, Functional Strength, Safety, Balance, Gait Treatment/Plan Treatment Plan: Continue Plan of Care Treatment Plan: Education, Functional Activity Stephanie, Functional Strength, Group Therapy, Safety, Therapeutic Exercise, Transfers Treatment Duration: October 24, 2016 Visits Per Week: 10-11 Minutes/Day (M-F): 60-90 Minutes/Day (Sat/[place]): PRN Safety Risks/Education Patient Education: Transfer Techniques, W/C Management, Safety Issues Teaching Recipient: Patient Teaching Methods: Demonstration, Discussion Time/GCodes Time In: 800 Time Out: 815 Total Billed Treatment Time: 15 Total Billed Treatment 1 visit FA 15 min JACINTO SINHA PT Oct 01, 2016 08:19
[2016-10-01] MEDS: SENNA W/DOCUSATE (SENOKOT S) TABLET PO SCH (08:21)
[2016-10-01 08:45] VITALS: BP 111/62
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
--- NOTE | 2016-10-01 09:58 | PM & R (SOAP) Progress Note ---
Subjective Subjective/Events-last exam Patient was seen in his room this AM Discussed case with RN and PT Patient states that he is leaving today and his father will pick him up Patient Modified Independent for transfers. Objective Exam Last Set of Vital Signs Vital Signs Date Time Temp Pulse Resp B/P (MAP) Pulse Ox O2 Delivery O2 Flow Rate FiO2 10/01/16 05:00 97.8 74 18 91/54 94 Room Air Capillary Refill : Less Than 3 SecondsLess Than 3 Seconds I&O Intake and Output 10/01/16 00:00 Intake Total 1700 ml Output Total 1401 ml Balance 299 ml Intake Oral 1700 ml Output Urine Total 1400 ml Urine/Stool Mix 1 ml # Bowel Movements 4 General: Alert, Oriented X3, Cooperative, No Acute Distress HEENT: Atraumatic, PERRLA, EOMI, Mucous Memb Moist/[place] Neck: Supple, No JVD Lungs: Clear to Auscultation Heart: Regular Rate Abdomen: Normal Bowel Sounds, Soft, No Tenderness Extremities: Other (left foot in splint) Neuro: Other (Functional except for left ankle postop) Assessment/Plan Assessment s/p pantalar fusion for abscess left foor continues on Antibiotics TBI with HX of disability Tobaccoism-chewing tobacco -smoking cessation Plan Discharge today to home with family F/U with DPM and PCP See orders CURT CORDERO MD Oct 01, 2016 09:58
[2016-10-01] MEDS ORDERED: TRAM50TA2 PO (10:05)
[2016-10-01] MEDS ORDERED: SULF1TAB35 PO (10:05)
[2016-10-01] MEDS ORDERED: FAMO20TA5 PO (10:05)
--- NOTE | 2016-10-01 10:53 | Occupational Ther Daily Note ---
OT Current Status-Daily Note Subjective Pt alert, lying in bed. Pt states that he is leaving today. No c/o pain . Agrees to therapy. Mental Status/Objective Patient Orientation: Person, Place, Time, Situation Functional [place] Measure 0=Not Assessed/NA 4=Minimal Assistance 1=Total Assistance 5=Supervision or Setup 2=Maximal Assistance 6=Modified [place] 3=Moderate Assistance 7=Complete [place] ADL-Treatment Functional [place] Measure 0=Not Assessed/NA 4=Minimal Assistance 1=Total Assistance 5=Supervision or Setup 2=Maximal Assistance 6=Modified [place] 3=Moderate Assistance 7=Complete IndependenceIRFPAI Quality Coding Scale 6 Independent with activity with or without an assistive device 5 Patient requires set up or clean up by helper. Patient completes activity by themselves 4 Supervision or touching assist (CGA). [place] provide cues , steadying assist 3 The helper provides less than half the effort to complete the activity 2 The helper provides more than half the effort to complete the activity 1 Dependent. The helper does all the effort to complete an activity 7 Patient refused to complete or attempt activity 9 The patient did not perform the activity before the current illness or injury 88 Not attempted due to Medical conditions or safety concerns Eating (FIM): 7 (Pt is able to set self up and use regular utensils to feed self.) Eating (QC): 6 (Pt is able to set self up and use regular utensils to feed self.) Grooming (FIM): 6 (Sitting in w/c at sink pt is able to complete own grooming.) Oral Hygiene (QC): 6 (Sitting in w/c at sink pt is able to complete own oral care.) Bathing (FIM): 6 (Using shower bench, grabbars and hand held shower pt is able to complete own bathing.) Bathing Location: L Arm, R Arm, L Upper Leg, R Upper Leg, L Lower Leg ( including foot) (LE in cast and unable to get wet.), R Lower Leg (including foot ), Chest, Abdomen, Buttocks, Perineal Area Shower/Bathe Self (QC): 6 (Using shower bench, grabbars and hand held shower pt is able to complete own bathing.) Upper Body (FIM): 6 (Using w/c, pt is able to retrieve clothes and don/doff upper body clothing by self.) Upper Body Dressing (QC): 6 (Using w/c, pt is able to retrieve clothes and don/ doff upper body clothing by self.) Lower Body Dressing (FIM): 6 (Using w/c, pt is able to retrieve clothes and don /doff lower body clothing by self. Pt adheres to wt bearing precautions when standing at EOB to hike pants over hips.) Lower Body Dressing (QC): 6 (Using w/c, pt is able to retrieve clothes and don/ doff lower body clothing by self. Pt adheres to wt bearing precautions when standing at EOB to hike pants over hips.) On/Off Footwear (QC): 6 (Completes sitting EOB.) Toileting (FIM): 6 (Using grabbars, pt is able to manipulate clothing and cleanse self.) Toileting Hygiene (QC): 6 (Using grabbars, pt is able to manipulate clothing and cleanse self.) Transfers (B, C, W/C) (FIM): 6 (Stand pivot transfers with w/c to other surfaces with mod I. Pt has consistently locked brakes on w/c when transferring.) Toilet/Commode Transfer (FIM): 6 (Using grabbar and w/c, pt is able to complete transfer by self.) Toilet Transfer (QC): 6 (Using grabbar and w/c, pt is able to complete transfer by self.) Shower Transfer(FIM): 6 (Using w/c, grabbar and shower bench pt is able to complete transfer by self.) Pt does demonstrated safety concerns with transfers. Pt has not demonstrated LOB during transfers. After therapy, pt sitting in bed with call light/phone in reach. All needs met in room. OT Short Term Goals Short Term Goals Time Frame: Oct 04, 2016 Eating(FIM): 5 (met-10/01/2016) Grooming(FIM): 5 (met-10/01/2016) Bathing(FIM): 5 (met-10/01/2016) Bathing Location: L Arm, R Arm, L Upper Leg, R Upper Leg, L Lower Leg ( including foot), R Lower Leg (including foot), Chest, Abdomen, Buttocks, Perineal Area Upper Body Dressing(FIM): 5 (met-10/01/2016) Lower Body Dressing(FIM): 3 (10/01/2016) Toileting(FIM): 3 (10/01/2016) Transfers (B,C,W/C) (FIM): 5 (10/01/2016) Toilet/Commode Transfer(FIM): 3 (10/01/2016) Tub Transfer(FIM): 0 Shower Transfer(FIM): 3 (10/01/2016) 1=Demonstrate adherence to instructed precautions during ADL tasks. 2=Patient will verbalize/demonstrate understanding of assistive devices/ modifications for ADL. 3=Patient will improve strength/tolerance for activity to enable patient to perform ADL's. OT Longterm Goals [employer] Administrator Developer Goals Time Frame: October 11, 2016 Eating (FIM): 7 (10/01/2016) Eating (QC): 6 (v) Groomin (10/01/2016) Oral Hygiene (QC): 6 (10/01/2016) Bathing(FIM): 6 (10/01/2016) Bathing Location: L Arm, R Arm, L Upper Leg, R Upper Leg, L Lower Leg ( including foot), R Lower Leg (including foot), Chest, Abdomen, Buttocks, Perineal Area Shower/Bathe Self (QC): 6 (10/01/2016) Upper Body Dressing(FIM): 6 (10/01/2016) Upper Body Dressing (QC): 6 (10/01/2016) Lower Body Dressing(FIM): 6 (10/01/2016) Lower Body Dressing (QC): 6 (10/01/2016) On/Off Footwear (QC): 6 (10/01/2016) Toileting(FIM): 6 (10/01/2016) Toileting Hygiene (QC): 6 (10/01/2016) Transfers (B,C,W/C) (FIM): 6 (10/01/2016) Toilet/Commode Transfer(FIM): 6 (10/01/2016) Toilet/Commode Transfer (QC): 6 (10/01/2016) Shower Transfer(FIM): 6 (10/01/2016) 1=Demonstrate adherence to instructed precautions during ADL tasks. 2=Patient will verbalize/demonstrate understanding of assistive devices/ modifications for ADL. 3=Patient will improve strength/tolerance for activity to enable patient to perform ADL's. OT Education/Plan Discharge Recommendations Plan/Recommendations: Continue POC Therapy D/C Recommendations: Occupational Therapy Outpatient Treatment Plan/Plan of Care Patient would benefit from OT for education, treatment and training to promote independence in ADL's, mobility, safety and/or upper extremity function for ADL' s. Plan of Care: ADL Retraining, Caregiver Training, Functional Mobility, Group Exercise/Act as Ind, UE Funct Exercise/Act, W/C Management Training Treatment Duration: October 25, 2016 Visits Per Week: 10-11 Minutes/Day (M-F): 75-90 Minutes/Day (Sat/[place]): PRN Agreement: Yes Rehab Potential: Good Time/GCodes Start Time: 10:00 Stop Time: 10:45 Total Time Billed (hr/min): 45 Billed Treatment Time 1 visit-ADL 3 (45 min) ANURAG BROWN Oct 01, 2016 10:53
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
[2016-10-01 15:00] VITALS: BP 111/62
--- NOTE | 2016-10-03 15:02 | Therapy Team Discharge Summary ---
Therapy Discharge Summary Discharge Recommendations Date of Discharge Oct 01, 2016 at 16:34 Therapy D/C Recommendations: Occupational Therapy Outpatient Occupational Therapy Pt was seen for skilled OT to increase his independence in basic self care after foot surgery, to allow him to safely be discharged to home. On admission he needed min assist with bathing, lower body dressing, toileting and toilet transfers and setup help with upper body dressing. by discharge he was modified independent with all basic ADLs, Equipment used included shower bench, grab bars , hand held shower, w/c. See tx plan for goals met. DC OT. PT Assisted Goals Assisted Goals PT Assisted Goals Time Frame: October 24, 2016 Transfers (B,C,W/C) (FIM): 6 Roll Left to Right (QC): 6 Sit to Lying (QC): 6 Lying-Sitting on Side/Bed(QC): 6 Sit to Stand (QC): 6 Chair/[id number] Xfer(QC): 6 Car Transfer (QC): 6 Does the Patient Walk: No and Walking Goal NOT indicated Does the Pt use WC or Scooter?: Yes Wheelchair (FIM): 6 Wheelchair distance (FIM): 3=150 ft Distance: 250' Wheelchair Level of Assist: 6 Wheel 50 feet with 2 turns (QC: 5 Picking up an Object (QC): 3 OT [employer] Production Machine Operator Goals Assisted Goals Time Frame: October 11, 2016 Eating (FIM): 7 (met-10/01/2016) Eating (QC): 6 (v) Oral Hygiene (QC): 6 (met-10/01/2016) Grooming(FIM): 6 (met-10/01/2016) Bathing(FIM): 6 (met10/01/2016) Bathing Location: L Arm, R Arm, L Upper Leg, R Upper Leg, L Lower Leg ( including foot), R Lower Leg (including foot), Chest, Abdomen, Buttocks, Perineal Area Shower/Bathe Self (QC): 6 (met-10/01/2016) Upper Body Dressing(FIM): 6 (met-10/01/2016) Upper Body Dressing (QC): 6 (met10/01/2016) Lower Body Dressing(FIM): 6 (met10/01/2016) Lower Body Dressing (QC): 6 (met10/01/2016) On/Off Footwear (QC): 6 (met10/01/2016) Toileting(FIM): 6 (10/01/2016) Toileting Hygiene (QC): 6 (10/01/2016) Transfers (B,C,W/C) (FIM): 6 (10/01/2016) Toilet/Commode Transfer(FIM): 6 (10/01/2016) Toilet/Commode Transfer (QC): 6 (10/01/2016) Shower Transfer(FIM): 6 (10/01/2016) 1=Demonstrate adherence to instructed precautions during ADL tasks. 2=Patient will verbalize/demonstrate understanding of assistive devices/ modifications for ADL. 3=Patient will improve strength/tolerance for activity to enable patient to perform ADL's. VALDEZ LUGO OT Oct 03, 2016 15:02
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
== END 2016-10-01 16:34 | disposition home or self-care (01) | DRG 560 ==
LOC: ENPENDDIS 10-01 12:00
PROVIDERS: ADMIT Physical Medicine & Rehabilitation; ATTEND Physical Medicine & Rehabilitation
DX: Z47.89 Encounter for other orthopedic aftercare (principal); Z98.1 Arthrodesis status; L02.612 Cutaneous abscess of left foot; F17.220 Nicotine dependence, chewing tobacco, uncomplicated; D64.9 Anemia, unspecified; Z87.820 Personal history of traumatic brain injury
CPT/HCPCS: 36415; 80053; 85025

== ENCOUNTER 2022-09-17 12:06 | Emergency (ER) | payer MEDICARE ==
[~2022-09-17] VITALS: Ht 165 cm; Wt 58.0 kg
[~2022-09-17 12:06] MED LIST changes: +FAMO20TA5 PO; +SULF1TAB38 PO; +TRM50T PO
[2022-09-17] MEDS ORDERED: LIDOCAINE 1% INJ 20 ML VIAL ONE (12:25)
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
[2022-09-17 13:14] VITALS: BP 126/69
[2022-09-17] MEDS ORDERED: TETANUS,DIPTH,PERTUSS P/F (BOOSTRIX) 0.5 ML VIAL IM ONE (13:24)
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
== END 2022-09-17 13:16 | disposition home or self-care (01) ==
LOC: EDUNIT# 12:06 → ER 12:08
DX: S01.111A Laceration without foreign body of right eyelid and periocular area, initial encounter (principal); S60.512A Abrasion of left hand, initial encounter; S60.511A Abrasion of right hand, initial encounter; S80.212A Abrasion, left knee, initial encounter; S80.211A Abrasion, right knee, initial encounter; V17.4XXA Pedal cycle driver injured in collision with fixed or stationary object in traffic accident, initial encounter; Y93.55 Activity, bike riding; Y92.410 Unspecified street and highway as the place of occurrence of the external cause
CPT/HCPCS: 12011; 70450; 70486; 72125; 90715